=== PATIENT | female | born 2000 | race African-American/Black ===

== ENCOUNTER 2023-11-09 13:39 | Emergency (ER) | payer BC, SELFPAY ==
[2023-11-09 13:44] VITALS: BP 131/87; PULSE 55; RESP 18; TEMP 36.2; O2SAT 100; BMI 21.0
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
== END 2023-11-09 14:41 | disposition home or self-care (01) ==
LOC: ED 14:23
PROVIDERS: Emergency Provider Internal Medicine
DX: T24.211A Burn of second degree of right thigh, initial encounter (principal); X08.8XXA Exposure to other specified smoke, fire and flames, initial encounter
CPT/HCPCS: 99282; 99283